=== PATIENT | male | born 1975 | race Two or more races ===

== ENCOUNTER 2019-05-21 18:02 | Emergency (ER) | payer SELFPAY ==
[~2019-05-21] VITALS: Ht 170.2 cm; Wt 81.6 kg
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
--- NOTE | 2019-05-21 18:08 | NUR ---
ED Nurse Note: ice pack provided.
[2019-05-21 18:09] VITALS: BP 121/78
[2019-05-21] MEDS ORDERED: Acetaminophen 500mg (ES) tab ORAL ONE (18:30)
--- NOTE | 2019-05-21 18:30 | NUR ---
ED Nurse Note: pt went to ct with tech
--- NOTE | 2019-05-21 18:38 | NUR ---
ED Nurse Note: Pt went back from ct with tech
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
--- NOTE | 2019-05-21 18:42 | NUR ---
ED Nurse Note: pt medicated as ordered. pt able to tolerate po meds. will continue to monitor.
[2019-05-21] MEDS ORDERED: ROBAXIN-750750 MG PO (19:48)
[2019-05-21] MEDS ORDERED: TYLENOL EXTRA500 MG ORAL (19:48)
[2019-05-21 19:56] VITALS: BP 121/78
--- NOTE | 2019-05-21 19:57 | NUR ---
ED Nurse Note: Pt cleared by health care Provider for discharge. DC instructions/prescription was given and explained to pt and verbalized understanding of teachings. All medical deviecs such as ID band removed. Pt is AAO x4, ambulatory and left with all personal belongings.
--- NOTE | 2019-05-22 11:01 | Diagnostic Imaging Report ---
Indication: Headache Technique: Contiguous 5 mm thick transaxial imaging of the head obtained in a Siemens Sensation [address] scanner. Soft tissue and bone windows generated. Automatic Exposure Control was utilized. Total Dose length Product (DLP): 1466.[address] Dose Index Volume (CTDIvol): 70.38 mGy Comparison: none Findings: The size and configuration of the cortical sulci, basal cisterns, and ventricles are within normal limits for age. There is no mass effect, midline shift, or edema identified. There is no evidence of acute hemorrhage or abnormal intra-axial or extra-axial fluid collections. The bones and soft tissues are unremarkable. Impression: No mass effect, edema or acute bleed. [facility] has communicated the preliminary results to the Emergency Department. Their findings are largely concordant with this report. The CT scanner at [facility] is accredited by the [employer] and the scans are performed using dose optimization techniques as appropriate to a performed exam including Automatic Exposure control.
== END 2019-05-21 20:00 | disposition home or self-care (01) ==
LOC: EDBD 18:02 → EMR 18:17
DX: S06.0X1A Concussion with loss of consciousness of 30 minutes or less, initial encounter (principal); S09.8XXA Other specified injuries of head, initial encounter; Y04.2XXA Assault by strike against or bumped into by another person, initial encounter
CPT/HCPCS: 70450; 99284

== ENCOUNTER 2019-06-16 16:43 | Emergency (ER) | payer SELFPAY ==
[~2019-06-16] VITALS: Ht 172.7 cm; Wt 31.8 kg
[~2019-06-16 16:43] MED LIST: ROBAXIN-750750 MG PO; TYLENOL EXTRA500 MG ORAL
[2019-06-16 16:58] VITALS: BP 115/70
[2019-06-16] MEDS ORDERED: NKM (17:01)
--- NOTE | 2019-06-16 17:02 | NUR ---
ED Nurse Note: Patient walked into ED c/o headache on the right side since yesterday. patient is alert awake x4 ambulatory.
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
[2019-06-16] MEDS ORDERED: IBUPROFEN600 MG ORAL (17:31)
[2019-06-16] MEDS ORDERED: ZITHROMAX250 MG ORAL (17:31)
[2019-06-16 17:41] VITALS: BP 115/70
--- NOTE | 2019-06-16 17:41 | NUR ---
ER DISCHARGE NOTE: Patient is cleared to be discharged per ERPA , pt is aox4, on room air, with stable vital signs. pt was given dc and prescription instructions, pt was able to verbalize understanding, pt id band removed without complications. pt is able to ambulate with steady gait. pt took all belongings.
== END 2019-06-16 17:41 | disposition home or self-care (01) ==
LOC: EMR 17:16
DX: H93.11 Tinnitus, right ear (principal); J02.9 Acute pharyngitis, unspecified
CPT/HCPCS: 99282